=== PATIENT | female | born 1985 | race American Indian/Alaskan Native ===

== ENCOUNTER 2020-07-17 14:55 | Observation (INO) | payer OTHER ==
--- NOTE | 2020-07-17 23:46 | History and Physical Report ---
History of Present Illness Date of examination: 07/17/20 History of present illness: Patient is being admitted for methotrexite treatment for possible ectopic . Patient has been seen in the office with BHcg > 1330 with inadequate rise and no IUP on ultrasound and possible ectopic Menstrual History Regularity: regular Menses every: 28 days Duration: 5 LMP: 05/14/2020 LMP reliability: definite LMP character: normal test type: urine test Date: 07/13/2020 BC at conception: none Planned ? yes Past History : 6 Term Births: 4 Premature Births: 0 Living Children: 4 Para: 4 Mult. Births: 0 Prev : 0 Aborta: 1 Elect. Ab: 0 Spont. Ab: 1 # 1 Delivery date: 2007 Weeks Gestation: 42 labor: no Delivery type: Hours of labor: 24 Anesthesia type: epidural Delivery location: [place] Infant Sex: Female weight: 6-4 Comments: No complications # 2 Delivery date: 2010 Weeks Gestation: 38 labor: no Delivery type: Hours of labor: ? Anesthesia type: epidural Delivery location: [place] Sex: Female weight: 6-0 Comments: No complications # 3 Delivery date: 2014 Weeks Gestation: 38 labor: no Delivery type: Hours of labor: ? Anesthesia type: epidural Delivery location: [place] Sex: Male weight: 8-0 Comments: No complications # 4 Delivery date: 2017 Weeks Gestation: 38 labor: no Delivery type: Hours of labor: ? Anesthesia type: 38epidural Delivery location: [place] Infant Sex: Female weight: 5-0 Comments: No complications # 5 Delivery date: 2019 Weeks Gestation: Early Comments: SAB, chemical : No D&C. Pt doesn't remember much else regarding , only that it was very early. Risk Factors: Smoked Tobacco Use: Never smoker Smokeless Tobacco Use: Never Passive smoke exposure: no Drug use: no HIV high-risk behavior: no Alcohol use: no Exercise: no Seatbelt use: 100 % Sun Exposure: rarely Dietary Counseling: no Past Medical History: Negative Past Medical History Past Surgical History: [place] teeth removed. Past Medical History Anesthesia Complications: negative Anemia: negative Autoimmune Disorder: negative Bleeding Disorder: negative Blood Transfusions: negative Breast Disease: negative Diabetes: negative Heart Disease: negative Hypertension: negative Hepatitis/Liver Disease: negative Kidney Disease/UTI: negative Neurologic/Epilepsy/Migraines: negative Phlebitis/Varicosities: negative Psychiatric: negative Pulmonary Disease/Asthma: negative Thyroid Disease: negative Hospitalizations: negative Surgery (Non-note teller): [place] teeth removed. Abnormal PAP: negative PIETER Exposure: negative Infertility: negative Uterine Anomaly: negative Uterine Surgery (not C/S): negative Other Gynecologic Problems: negative Family Hx: Stroke, Heart disease, HTN: Grandmother CA: on both sides of family DM: Grandparents Partner hx. of genital herpes: no Rash, Viral, or Febrile illness since last LMP? no Varicella/Chicken Pox Status: Previous Disease TB Risk: no Genetic History Congenital Heart Defect: Mom: no Dad: no Sarita Disease: Mom: no Dad: no Thalassemia Mom: no Dad: no Neural Tube Defect Mom: no Dad: no Down's Syndrome Mom: no Dad: no Asher-Sachs Mom: no Dad: no Sickle Cell Disease/Trait Mom: no Dad: no Hemophilia Mom: no Dad: no Muscular Dystrophy Mom: no Dad: no Cystic Fibrosis Mom: no Dad: no [place] Chorea Mom: no Dad: no Mental Retardation Mom: no Dad: no Fragile X Mom: no Dad: no Other Genetic/Chromosomal Disorder Mom: no Dad: no Child w/other defect Mom: no Dad: no Enviromental Exposures Xray Exposure: no Medication, drug, or alcohol use since LMP: no Chemical/Other Exposure: no Exposure to Cat Liter: no Hx of Parvovirus (Fifth Disease): no Occupational Exposure to Children: none Current Allergies (reviewed today): * SHELLFISH (Critical) Past History Past Medical History: other (SEE HPI ) Past Surgical History: Other (SEE HPI ) Social history: , full code, other (SEE HPI ) Family history: other (SEE HPI ) Medications and Allergies Allergies Allergy/AdvReac Type Severity Reaction Status Date / Time shellfish derived AdvReac Unknown Verified 07/17/20 16:51 Review of Systems Constitutional: other (SEE HPI ) Exam - Constitutional General appearance: Present: no acute distress - Respiratory Respiratory effort: normal - Cardiovascular Rhythm: regular - Extremities Extremities: no ischemia Extremity abnormal: edema - Abdominal General gastrointestinal: Present: soft, non-tender Female genitourinary: Present: normal - Rectal Rectal Exam: deferred - Integumentary Integumentary: Present: clear, warm, dry - Psychiatric Psychiatric: appropriate mood/affect, intact judgment & insight - Neurologic Neurologic: moves all extremities Assessment and Plan - Patient Problems (1) Ectopic Status: Acute Qualifiers: Intrauterine status: without intrauterine Laterality: unspecified laterality Plan to address problem: Diagnosis explained to patient . Questions answered. Medical and surgical treatment options discussed Discussed risks and benefits of expectant managemen, surgeryt and methotrexite Risk and benefits discussed. Questions answered Patient understands and desires to proceed. methotrexite Side effects discussed questions answered
[2020-07-18] MEDS ORDERED: ACETAMINOPHEN 325 MG TAB PO PRN (00:01)
[2020-07-18] MEDS ORDERED: ONDANSETRON 4 MG/2 ML INJ IV PRN (00:01)
[2020-07-18] MEDS ORDERED: ACETAMINOPHEN 500 MG TAB PO PRN (16:50)
[2020-07-18 17:29] LABS: Basophils # (Auto) 0.1 K/mm3 (0.0-0.1); Basophils % (Auto) 1.2 % (0.0-1.8); Eosinophils # (Auto) 0.2 K/mm3 (0.0-0.4); Eosinophils % (Auto) 3.2 % (0.0-4.3); Hemoglobin 11.9 gm/dl (10.1-14.3); Lymphocytes # (Auto) 2.6 K/mm3 (1.2-5.4); Lymphocytes % (Auto) 42.4 % (13.4-35.0); Mean Corpuscular HGB Conc 34 % (30-34); Mean Corpuscular Volume 97 fl (79-97); Monocytes # (Auto) 0.3 K/mm3 (0.0-0.8); Monocytes % (Auto) 5.3 % (0.0-7.3); Platelet Count 251 K/mm3 (140-440); Red Blood Count 3.59 M/mm3 (3.65-5.03); Red Cell Distribution Width 13.2 % (13.2-15.2)
--- NOTE | 2020-07-18 17:34 | Event Note ---
Date: 07/18/20 This is a 36yo female who presents Methotrexate therapy for an abnormal . TVUS in the office 07/13/20 and yesterday indicated the absence of an intrauterine gestational sac and labs drawn 07/13/20 and 07/15/20 showed qbhcg's above the discriminatory level and an inappropriate increase of levels in a 48hour period. These finding strongly suggests a nonviable gestation (an early loss or an ectopic ). This diagnosis was again discussed with her and her significant other who presented today. She continues to decline taylor gical intervention and desires to proceed with medical therapy. She denies vaginal bleeding or pain. Past medical history: negative Past surgical history: oral Allergies: none Medications: none The strict follow up regimen for Methotrexate treatment was explained. She was informed she needs to stay home and have someone readily available at least over the next week to bring her back to the hospital should she have any problems. In addition to the medications mentioned on the consent to avoid after receiving Methotrexate she was also instructed to avoid all vitamins as well as "natural" medications and herbal supplements. Questions were encouraged and answered. She voiced understanding and desires to proceed with Methotrexate treatment for abnormal . Consent for methotrexate was reviewed and signed.
[2020-07-18 17:48] LABS: Alanine Aminotransferase 9 units/L (7-56); Albumin 4.3 g/dL (3.9-5); Blood Urea Nitrogen 9 mg/dL (7-17); Calcium 8.7 mg/dL (8.4-10.2); Hemolysis Index 13
[2020-07-18 17:49] LABS: BUN/Creatinine Ratio 13
[2020-07-18 20:30] VITALS: BP 145/69
== END 2020-07-18 20:20 | disposition home or self-care (01) ==
LOC: 3A 16:48 → UNDOADMOB 16:48 → OB 07-18 16:19 → EDBD 07-18 16:19
PROVIDERS: ADMIT Obstetrics & Gynecology; ATTEND Obstetrics & Gynecology
DX: O00.90 Unspecified ectopic pregnancy without intrauterine pregnancy (principal); Z3A.01 Less than 8 weeks gestation of pregnancy
CPT/HCPCS: 36415; 80053; 85025; 86900; 86901; 96372; G0378; G0379; J9260